=== PATIENT | female | born 1990 | race Caucasian/White ===

== ENCOUNTER 2017-06-15 21:06 | Emergency (ER) | payer SELFPAY ==
[~2017-06-15] VITALS: Ht 170.2 cm; Wt 91.0 kg
[~2017-06-15 21:06] MED LIST: CEPH-443 PO; IBUP-1542 PO; NITR-58 PO; PHEN-538 PO
[2017-06-15 21:53] VITALS: Ht 170.2 cm; Wt 91.0 kg
== END 2017-06-16 01:12 | disposition left against medical advice (07) ==
LOC: E/R 21:06
DX: Z53.21 Procedure and treatment not carried out due to patient leaving prior to being seen by health care provider (principal)